=== PATIENT | male | born 2000 | race Caucasian/White ===

== ENCOUNTER 2022-09-13 14:53 | Outpatient (CLI) | payer BC, SELFPAY ==
[2022-09-13 17:40] LABS: Chloride* 103 mmol/L (96-114); Sodium* 141 mmol/L (135-149)
[2022-09-13 17:41] LABS: Potassium* 4.7 mmol/L (3.6-5.1)
[2022-09-13 17:43] LABS: Carbon Dioxide* 29 mmol/L (20-32); Cholesterol* 123 mg/dL (90-199); Creatinine* 0.7 mg/dL (0.6-1.2); Estimated Glomerular Filt Rate 136 ml/min
[2022-09-13 17:44] LABS: Blood Urea Nitrogen* 17 mg/dL (5-24); Calcium* 9.8 mg/dL (8.7-10.8); Glucose* 82 mg/dL (60-115); HDL Cholesterol* 38 mg/dL (>=40); LDL Cholesterol Calculated 58 mg/dL (<100); Triglycerides* 134 mg/dL (40-149)
== END 2022-09-13 14:54 | disposition home or self-care (01) ==
PROVIDERS: PCP Family Medicine; Visit Provider Family Medicine
DX: Z13.1 Encounter for screening for diabetes mellitus (principal); Z13.6 Encounter for screening for cardiovascular disorders
CPT/HCPCS: 80048; 80061